=== PATIENT | male | born 1980 | race Caucasian/White ===

== ENCOUNTER 2017-01-24 12:39 | Emergency (ER) | payer SELFPAY ==
[2017-01-24 13:17] VITALS: BP 106/66
--- NOTE | 2017-01-24 13:58 | UC ---
Ear Complaint HPI - History of Current Complaint Chief Complaint: UCEar Stated Complaint: EAR COMPLAINT Time Seen by Provider: 01/24/17 13:30 Hx Obtained From: Patient Onset/Duration: Gradual Onset - has had decreased hearing and ringing in bilat ears over past few days, no pain, no drainage Severity Initially: Mild Severity Currently: Mild - has had chronic earwax build -up. has them flushed approx q month Aggravating Factors: Nothing Alleviating Factors: Nothing Associated Signs/Symptoms: Positive: Hearing Loss. Negative: URI Symptoms Related History: Other (Noted In Comments) - cerumen impactions - Allergies/Home Medications Allergies/Adverse Reactions: Allergies Allergy/AdvReac Type Severity Reaction Status Date / Time No Known Allergies Allergy Verified 03/12/16 17:28 Home Medications: Home Medications NK [No Home Medications Reported] 01/24/17 [History Confirmed 01/24/17] PMH/Surg Hx/FS Hx/Imm Hx Previously Healthy: Yes Cardiovascular History Of: Denies: Cardiac Disorders Respiratory History Of: Denies: COPD - Surgical History Surgical History: Yes Surgery Procedure, Year, and Place: WISDOM TEETH - Family History Known Family History: Positive: None Negative: Blood Disorder - Social History Occupation: Employed Full-time Lives: With Family Alcohol Use: None Substance Use Type: Marijuana Substance Use Comment - Amount & Last Used: daily Smoking Status (MU): Current Some Day Smoker Type: Cigarettes Amount Used/How Often: 1 CIG/DAY Cessation Counseling: Patient Advised to Stop Review of Systems Constitutional: Negative Skin: Negative ENT: Other - wax build up Respiratory: Negative Cardiovascular: Negative Neurovascular: Negative Neurological: Negative Psychological: Negative All Other Systems Reviewed And Are Negative: Yes Physical Exam Triage Information Reviewed: Yes Appearance: Well-Appearing, No Pain Distress, Well-Nourished Vital Signs: Initial Vital Signs Temp 98.7 F 01/24/17 13:14 Pulse 52 01/24/17 13:14 Resp 18 01/24/17 13:14 BP 106/66 01/24/17 13:14 Pulse Ox 98 01/24/17 13:14 Vital Signs Reviewed: Yes Eyes: Positive: Conjunctiva Clear ENT: Positive: Pharynx normal, Other: - bilateral cerumen impactions occluding TMs. Negative: Nasal congestion Respiratory Exam: Normal Respiratory: Positive: Lungs clear Cardiovascular Exam: Normal Cardiovascular: Positive: RRR Neurological Exam: Normal Psychological Exam: Normal Skin Exam: Normal Re-Evaluation - Re-Evaluation First Eval Re-Evaluation Time: 14:10 - bilateral ear canals are clear, TM's pearly with normal landmarks. pt states ears feel better, hearing improved Change: Improved Ear Complaint Course/Dx - Differential Dx/Diagnosis Differential Diagnosis/HQI/PQRI: Cerumen Impaction, Otitis Externa, Otitis Media Provider Diagnoses: bilateral cerumen impaction Discharge - Discharge Plan Condition: Good Disposition: HOME Patient Education Materials: Cerumen Impaction (ED) Additional Instructions: use the over the counter ear wax oil you have at home as directed return for problems
== END 2017-01-24 14:24 | disposition home or self-care (01) ==
LOC: UCEAST 12:39
DX: H61.23 Impacted cerumen, bilateral (principal); F17.290 Nicotine dependence, other tobacco product, uncomplicated
CPT/HCPCS: 99213; G0463

== ENCOUNTER 2017-07-03 13:32 | Emergency (ER) | payer SELFPAY ==
[2017-07-03 15:38] VITALS: BP 108/60
--- NOTE | 2017-07-03 16:00 | RAD ---
Indication: Left ankle pain. 3 views of left ankle demonstrates no fracture or dislocation. No other bone or joint abnormality is identified. Soft tissue swelling is noted. IMPRESSION: No fracture of the left ankle is noted.
--- NOTE | 2017-07-03 16:29 | ED ---
Lower Extremity - HPI Summary HPI Summary: 36M presents with left ankle pain two days ago after invert his ankle. He has been walking on his toes since. He states that area swelled and he noticed some brusing to the area. He denies any numbness or tingling. He has been taking advil for his pain. He has sprain his ankle multiple times and feels like it feels the same. - History of Current Complaint Chief Complaint: EDExtremityLower Stated Complaint: FALL/LT ANKLE-FOOT PAIN Time Seen by Provider: 07/03/17 16:04 Pain Intensity: 5 - Allergies/Home Medications Allergies/Adverse Reactions: Allergies Allergy/AdvReac Type Severity Reaction Status Date / Time No Known Allergies Allergy Verified 07/03/17 13:53 PMH/Surg Hx/FS Hx/Imm Hx Respiratory History: Denies: Hx Chronic Obstructive Pulmonary Disease (COPD) Psychiatric History: Reports: Hx Substance Abuse - HX OF HEROIN INJECTION IN - Surgical History Surgery Procedure, Year, and Place: WISDOM TEETH Infectious Disease History: Reports: Hx Hepatitis - c Denies: Hx Clostridium Difficile, Hx Human Immunodeficiency Virus (HIV), Hx of Known/Suspected MRSA, Hx Shingles, Hx Tuberculosis, Hx Known/Suspected VRE, Hx Known/Suspected VRSA, History Other Infectious Disease, Traveled Outside the [place] in Last 30 Days - Family History Known Family History: Positive: None Negative: Cardiac Disease, Blood Disorder - Social History Alcohol Use: None Substance Use Type: Reports: Marijuana Substance Use Comment - Amount & Last Used: daily Smoking Status (MU): Current Some Day Smoker Type: Cigarettes Amount Used/How Often: 1 CIG/DAY Review of Systems Negative: Fever Negative: Chest Pain Negative: Shortness Of Breath Positive: Myalgia - left ankle All Other Systems Reviewed And Are Negative: Yes Physical Exam Triage Information Reviewed: Yes Vital Signs On Initial Exam: Initial Vitals Temp Pulse Resp BP Pulse Ox 98.7 F 66 16 121/62 97 07/03/17 13:53 07/03/17 13:53 07/03/17 13:53 07/03/17 13:53 07/03/17 13:53 Vital Signs Reviewed: Yes Appearance: Positive: Well-Appearing Skin: Positive: Warm, Dry Head/Face: Positive: Normal Head/Face Inspection Eyes: Positive: Normal, Conjunctiva Clear Respiratory/Lung Sounds: Positive: Clear to Auscultation, Breath Sounds Present Cardiovascular: Positive: Normal, RRR Musculoskeletal: Positive: Limited @ - left ankle, Edema Left - ankle, Other - good pulses, capillary refill<2 secs, ecchymosis to ankle and foot, tender across lateral aspect of ankle Diagnostics - Vital Signs Vital Signs Temp Pulse Resp BP Pulse Ox 07/03/17 15:38 97.9 F 89 108/60 98 07/03/17 13:53 98.7 F 66 16 121/62 97 - Laboratory Lab Statement: Any lab studies that have been ordered have been reviewed, and results considered in the medical decision making process. Lower Extremity Course/Dx - Course Course Of Treatment: 36M presents with left ankle pain two days ago after invert his ankle. He has been walking on his toes since. He states that area swelled and he noticed some brusing to the area. He denies any numbness or tingling. He has been taking advil for his pain. He has sprain his ankle multiple times and feels like it feels the same. xray normal. will treat with RICE. patient understands and agrees with plan. - Diagnoses Differential Diagnosis/HQI/PQRI: Positive: Fracture (Closed), Sprain, Strain Provider Diagnoses: Left ankle injury Discharge - Discharge Plan Condition: Good Disposition: HOME Patient Education Materials: Ankle Sprain (ED) Referrals: [facility] [Outside] Additional Instructions: Stay off ankle as much as possible Ice, elevate, keep in RYAN Ibuprofen every 6-8 hours for pain Establish care with primary care physician Return to ED if develop any new or worsening symptoms
== END 2017-07-03 16:50 | disposition home or self-care (01) ==
LOC: ED 13:32
DX: S99.912A Unspecified injury of left ankle, initial encounter (principal); X50.1XXA Overexertion from prolonged static or awkward postures, initial encounter; Y93.9 Activity, unspecified; Y92.9 Unspecified place or not applicable; F12.90 Cannabis use, unspecified, uncomplicated; Z72.0 Tobacco use
CPT/HCPCS: 99281

== ENCOUNTER 2018-06-19 02:17 | Emergency (ER) | payer SELFPAY ==
--- NOTE | 2018-06-19 02:30 | ED ---
Substance Abuse/Use - HPI Summary HPI Summary: This is génesis Bertrand documenting for attending Vicente Mcknight MD. This patient is a 37 year old M brought in by [employer] to [facility] with a chief complaint of EtOH intoxication since earlier this evening. Police report the patient became agitated and belligerent at the [employer] festival and the police were called. Per triage note, patient admits to using Ketamine today. The patient rates the pain 0/10 in severity. Symptoms aggravated by nothing. Symptoms alleviated by nothing. - History Of Current Complaint Chief Complaint: EDMentalHealth Stated Complaint: ETOH Hx Obtained From: Patient, Other: - police Onset/Duration of Drug/ETOH Abuse: Hours Ingestion History: Type/Name Of Drug - marijuana, EtOH Overdose Characteristics: Oral Timing Of Abuse: Binge Use Severity Initially: Mild Severity Currently: Mild Character: Angry Aggravating Factor(s): Nothing Alleviating Factor(s): Nothing Associated Signs And Symptoms: Agitated Related Hx: Possible Multi Drug Ingestion - Allergies/Home Medications Allergies/Adverse Reactions: Allergies Allergy/AdvReac Type Severity Reaction Status Date / Time No Known Allergies Allergy Verified 07/03/17 13:53 PMH/Surg Hx/FS Hx/Imm Hx Respiratory History: Denies: Hx Chronic Obstructive Pulmonary Disease (COPD) Opthamlomology History: Denies: Hx Legally Blind EENT History: Denies: Hx Deafness Psychiatric History: Reports: Hx Substance Abuse - HX OF HEROIN INJECTION IN - Surgical History Surgery Procedure, Year, and Place: WISDOM TEETH Infectious Disease History: No Infectious Disease History: Reports: Hx Hepatitis - c Denies: Hx Clostridium Difficile, Hx Human Immunodeficiency Virus (HIV), Hx of Known/Suspected MRSA, Hx Shingles, Hx Tuberculosis, Hx Known/Suspected VRE, Hx Known/Suspected VRSA, History Other Infectious Disease, Traveled Outside the [place] in Last 30 Days - Family History Known Family History: Positive: None Negative: Cardiac Disease, Blood Disorder - Social History Alcohol Use: None Substance Use Type: Reports: Marijuana Substance Use Comment - Amount & Last Used: daily Smoking Status (MU): Current Some Day Smoker Type: Cigarettes Amount Used/How Often: 1 CIG/DAY Review of Systems Negative: Fever Negative: Epistaxis Negative: Cough Negative: Vomiting Neurological: Other - EtOH intoxication All Other Systems Reviewed And Are Negative: Yes Physical Exam - Summary Physical Exam Summary: Appearance: Well-appearing, Well-nourished, lying in bed comfortably, clearly intoxicated, smells of alcohol and marijuana Skin: Warm, dry, no obvious rash Eyes: sclera anicteric, no conjunctival pallor ENT: mucous membranes moist, pharynx appears normal Neck: Supple, nontender Respiratory: Clear to auscultation, no signs of respiratory distress Cardiovascular: Normal S1, S2. No murmurs. Normal distal pulses in tibial and radial bilaterally. Abdomen: Soft, nontender, normal active bowel sounds present Musculoskeletal: Normal, Strength/ROM Intact Neurological: A&Ox3, awake and alert, mentation is normal, speech is fluent and appropriate Psychiatric: affect is normal, does not appear anxious or depressed, cooperative with medical staff Triage Information Reviewed: Yes Vital Signs On Initial Exam: Initial Vitals Temp Pulse Resp BP Pulse Ox 98.9 F 97 18 135/91 99 06/19/18 02:21 06/19/18 02:21 06/19/18 02:21 06/19/18 02:21 06/19/18 02:21 Vital Signs Reviewed: Yes Diagnostics - Vital Signs Vital Signs Temp Pulse Resp BP Pulse Ox 06/19/18 02:21 98.9 F 97 18 135/91 99 - Laboratory Lab Statement: Any lab studies that have been ordered have been reviewed, and results considered in the medical decision making process. Course/Dx - Diagnoses Provider Diagnoses: Acute delirium Discharge - Sign-Out/Discharge Documenting (check all that apply): Sign-Out Patient Signing out patient TO: Kingsley Hargrove Receiving patient FROM: Vicente Mcknight - Discharge Plan Patient Education Materials: Acute Delirium (ED) Referrals: [facility] [Outside] Additional Instructions: Rest at home until you feel normal.
[2018-06-19] MEDS ORDERED: LORazepam TAB(*) 1 MG PO ONE (04:26)
[2018-06-19] MEDS ORDERED: LORazepam TAB(*) 1 MG ONE (04:27)
--- NOTE | 2018-06-19 07:55 | ED ---
Progress - Progress Note Progress Note: This is scratiya Kingston documenting for attending Dr. Kingsley Hargrove MD. This patient is a sign-out from Dr. Vicente Mcknight MD, at change of shift, awaiting discharge home. He is diagnosed with acute delirium by Dr. Mcknight. Pt was given discharge instructions and return precautions by previous physician Dr. Mcknight, who had already medically cleared him to leave with someone responsible to pick him up at bedside. Nurse reports his brother at bedside to pick him up. Course/Dx - Diagnoses Provider Diagnoses: Acute delirium Discharge - Sign-Out/Discharge Documenting (check all that apply): Patient Departure - Pt discharged home., Receiving Sign-Out Receiving patient FROM: Vicente Mcknight - Pt received as a sign-out at shift change, awaiting discharge home. - Discharge Plan Condition: Stable Disposition: HOME Patient Education Materials: Acute Delirium (ED) Referrals: [facility] [Outside] Additional Instructions: Rest at home until you feel normal. - Billing Disposition and Condition Condition: STABLE Disposition: Home
[2018-06-19 08:30] VITALS: BP 101/67
== END 2018-06-19 08:30 | disposition home or self-care (01) ==
LOC: ED 02:17
DX: F10.921 Alcohol use, unspecified with intoxication delirium (principal); F19.90 Other psychoactive substance use, unspecified, uncomplicated; Z72.0 Tobacco use
CPT/HCPCS: 99284; A9270-GY

== ENCOUNTER 2018-08-19 15:33 | Emergency (ER) | payer SELFPAY ==
[2018-08-19 16:25] LABS: Urine Appearance Cloudy; Urine Blood Negative (Negative); Urine Color Yellow; Urine Ketones Negative (Negative); Urine Protein Negative (Negative); Urine Specific Gravity 1.014 (1.010-1.030); Urine Urobilinogen Negative (Negative)
[2018-08-19 16:39] LABS: ABS Basophils 0.1 10^3/ul (0-0.2); ABS Eosinophils 0.2 10^3/ul (0-0.6); ABS Lymphocytes 1.6 10^3/ul (1.0-4.8); ABS Monocytes 0.7 10^3/ul (0-0.8); ABS Neutrophils 8.1 10^3/ul (1.5-7.7); ABS Nucleated RBC 0 10^3/ul; Eosinophil % 1.9 % (0-6); Hematocrit 43 % (42-52); Hemoglobin 14.9 g/dl (14.0-18.0); Lymphocyte % 15.3 % (25-47); Mean Corpuscular HGB Conc 34 g/dl (31-36); Mean Corpuscular Hemoglobin 32 pg (27-31); Mean Corpuscular Volume 92 fL (80-94); Nucleated Red Blood Cells % 0; Platelet Count 251 10^3/ul (150-450); Red Blood Count 4.69 10^6/ul (4.00-5.40); Red Cell Distribution Width 14 % (10.5-15); White Blood Count 10.7 10^3/ul (3.5-10.8)
[2018-08-19 16:55] LABS: EGFR Non-African American 96.4 (>60)
[2018-08-19] MEDS ORDERED: Nicotine Inhaler* 10 MG AMP INH PRN (17:36)
[2018-08-19] MEDS ORDERED: Mouth Piece, Nicotine* 1 EACH CARTRIDGE INH PRN (17:36)
[2018-08-19] MEDS ORDERED: LORazepam TAB(*) 1 MG PO ONE (19:20)
--- NOTE | 2018-08-19 19:20 | ED ---
Psychiatric Complaint - HPI Summary HPI Summary: This patient is a 37 year old M presenting to [facility] with a chief complaint of SI since 08/18/18. He endorses several stressors: my parents will be homeless in a week/are addicted to heroin, his friend hanged himself last week , he overdosed on acid 2 months ago, and his left him. Pt endorses marijuana use. Patient denies SI, and claims that he is in the ED because someone who is trying to fuck my said that the patient claimed Id rather than never see my family again. He endorses a previous suicide attempt when 12 (25 years ago). Per police report, pt was brought in for active SI. - History Of Current Complaint Chief Complaint: EDMentalHealth Hx Obtained From: Patient Onset/Duration: Sudden Onset, Lasting Hours, Resolved - allegedly Severity Initially: Moderate Severity Currently: Mild Character: Frustrated Aggravating Factor(s): Recent Stress - see HPI summary Alleviating Factor(s): Nothing Associated Signs And Symptoms: Positive: Negative Related History: Positive For: Prior Psychiatric Issues Has Suicidal: Reports: Thoughts - resolved, Has Prior Attempt(s) - 25 years ago Has Homicidal: Denies: Thoughts - Allergies/Home Medications Allergies/Adverse Reactions: Allergies Allergy/AdvReac Type Severity Reaction Status Date / Time No Known Allergies Allergy Verified 07/03/17 13:53 PMH/Surg Hx/FS Hx/Imm Hx Endocrine/Hematology History: Denies: Hx Sickle Cell Disease Cardiovascular History: Denies: Hx Pacemaker/ICD Respiratory History: Denies: Hx Chronic Obstructive Pulmonary Disease (COPD) GI History: Denies: Hx Ileostomy History: Denies: Hx Dialysis Sensory History: Denies: Hx Legally Blind, Hx Deafness Opthamlomology History: Denies: Hx Legally Blind EENT History: Denies: Hx Deafness Neurological History: Denies: Hx Dementia Psychiatric History: Reports: Hx Suicide Attempt, Hx Substance Abuse - HX OF HEROIN INJECTION IN - Surgical History Surgery Procedure, Year, and Place: WISDOM TEETH Infectious Disease History: Yes Infectious Disease History: Reports: Hx Hepatitis - c Denies: Hx Clostridium Difficile, Hx Human Immunodeficiency Virus (HIV), Hx of Known/Suspected MRSA, Hx Shingles, Hx Tuberculosis, Hx Known/Suspected VRE, Hx Known/Suspected VRSA, History Other Infectious Disease, Traveled Outside the [place] in Last 30 Days - Family History Known Family History: Negative: Cardiac Disease, Blood Disorder - Social History Lives: Alone Alcohol Use: None Hx Substance Use: Yes Substance Use Type: Reports: Marijuana, Synthetic Drugs Substance Use Comment - Amount & Last Used: daily Hx Tobacco Use: Yes Smoking Status (MU): Current Some Day Smoker Type: Cigarettes Amount Used/How Often: 1 CIG/DAY Review of Systems Negative: Fever Positive: no symptoms reported Positive: Other - resolved SI. All Other Systems Reviewed And Are Negative: Yes Physical Exam - Summary Physical Exam Summary: VITAL SIGNS: Reviewed. GENERAL: Patient is a well-developed and nourished (MALE OR FEMALE) who is lying comfortable in the stretcher. Patient is not in any acute respiratory distress. HEAD AND FACE: No signs of trauma. No ecchymosis, hematomas or skull depressions. No sinus tenderness. EYES: PERRLA, EOMI x 2, No injected conjunctiva, no nystagmus. EARS: Hearing grossly intact. Ear canals and tympanic membranes are within normal limits. MOUTH: Oropharynx within normal limits. NECK: Supple, trachea is midline, no adenopathy, no JVD, no carotid bruit, no c- spine tenderness, neck with full ROM. CHEST: Symmetric, no tenderness at palpation LUNGS: Clear to auscultation bilaterally. No wheezing or crackles. CVS: Regular rate and rhythm, S1 and S2 present, no murmurs or gallops appreciated. ABDOMEN: Soft, non-tender. No signs of distention. No rebound no guarding, and no masses palpated. Bowel sounds are normal. EXTREMITIES: FROM in all major joints, no edema, no cyanosis or clubbing. NEURO: Alert and oriented x 3. No acute neurological deficits. Speech is normal and follows commands. SKIN: Dry and warm PSYCH: Reny Triage Information Reviewed: Yes Vital Signs On Initial Exam: Initial Vitals Temp Pulse Resp BP Pulse Ox 98.8 F 91 16 149/110 98 08/19/18 15:48 08/19/18 15:48 08/19/18 15:48 08/19/18 15:48 08/19/18 15:48 Vital Signs Reviewed: Yes Diagnostics - Vital Signs Vital Signs Temp Pulse Resp BP Pulse Ox 08/19/18 15:48 98.8 F 91 16 149/110 98 - Laboratory Lab Results: Lab Results 08/19/18 08/19/18 08/19/18 Range/Units 16:13 16:13 16:19 WBC 10.7 (3.5-10.8) 10^3/ul RBC 4.69 (4.00-5.40) 10^6/ul Hgb 14.9 (14.0-18.0) g/dl Hct 43 (42-52) % MCV 92 (80-94) fL MCH 32 H (27-31) pg MCHC 34 (31-36) g/dl RDW 14 (10.5-15) % Plt Count 251 (150-450) 10^3/ul MPV 9.0 (7.4-10.4) um3 Neut % (Auto) 75.5 (38-83) % Lymph % (Auto) 15.3 L (25-47) % [place] % (Auto) 6.7 (0-7) % Eos % (Auto) 1.9 (0-6) % Baso % (Auto) 0.6 (0-2) % Absolute Neuts (auto) 8.1 H (1.5-7.7) 10^3/ul Absolute Lymphs (auto) 1.6 (1.0-4.8) 10^3/ul Absolute Monos (auto) 0.7 (0-0.8) 10^3/ul Absolute Eos (auto) 0.2 (0-0.6) 10^3/ul Absolute Basos (auto) 0.1 (0-0.2) 10^3/ul Absolute Nucleated RBC 0 10^3/ul Nucleated RBC % 0 Sodium (135-145) mmol/L Potassium (3.5-5.0) mmol/L Chloride (101-111) mmol/L Carbon Dioxide (22-32) mmol/L Anion Gap (2-11) mmol/L BUN (6-24) mg/dL Creatinine (0.67-1.17) mg/dL Est GFR ( Amer) (>60) Est GFR (Non-Af Amer) (>60) BUN/Creatinine Ratio (8-20) Glucose (70-100) mg/dL Calcium (8.6-10.3) mg/dL Total Bilirubin (0.2-1.0) mg/dL AST (13-39) U/L ALT (7-52) U/L Alkaline Phosphatase (34-104) U/L Total Protein (6.4-8.9) g/dL Albumin (3.2-5.2) g/dL Globulin (2-4) g/dL Albumin/Globulin Ratio (1-3) TSH (0.34-5.60) mcIU/mL Urine Color Yellow Urine Appearance Cloudy Urine pH 7.0 (5-9) Ur Specific [place] 1.014 (1.010-1.030) Urine Protein Negative (Negative) Urine Ketones Negative (Negative) Urine Blood Negative (Negative) Urine Nitrate Negative (Negative) Urine Bilirubin Negative (Negative) Urine Urobilinogen Negative (Negative) Ur Leukocyte Esterase Negative (Negative) Urine Glucose Negative (Negative) Salicylates (<30) mg/dL Urine Opiates Screen None detected (None Detect) Acetaminophen mcg/mL Ur Barbiturates Screen None detected (None Detect) Ur Phencyclidine Scrn None detected (None Detect) Ur Amphetamines Screen None detected (None Detect) U Benzodiazepines Scrn None detected (None Detect) Urine Cocaine Screen None detected (None Detect) U Cannabinoids Screen Presumptive positive A (None Detect) Serum Alcohol (<10) mg/dL 08/19/18 Range/Units 16:19 WBC (3.5-10.8) 10^3/ul RBC (4.00-5.40) 10^6/ul Hgb (14.0-18.0) g/dl Hct (42-52) % MCV (80-94) fL MCH (27-31) pg MCHC (31-36) g/dl RDW (10.5-15) % Plt Count (150-450) 10^3/ul MPV (7.4-10.4) um3 Neut % (Auto) (38-83) % Lymph % (Auto) (25-47) % [place] % (Auto) (0-7) % Eos % (Auto) (0-6) % Baso % (Auto) (0-2) % Absolute Neuts (auto) (1.5-7.7) 10^3/ul Absolute Lymphs (auto) (1.0-4.8) 10^3/ul Absolute Monos (auto) (0-0.8) 10^3/ul Absolute Eos (auto) (0-0.6) 10^3/ul Absolute Basos (auto) (0-0.2) 10^3/ul Absolute Nucleated RBC 10^3/ul Nucleated RBC % Sodium 138 (135-145) mmol/L Potassium 4.0 (3.5-5.0) mmol/L Chloride 107 (101-111) mmol/L Carbon Dioxide 25 (22-32) mmol/L Anion Gap 6 (2-11) mmol/L BUN 16 (6-24) mg/dL Creatinine 0.88 (0.67-1.17) mg/dL Est GFR ( Amer) 116.7 (>60) Est GFR (Non-Af Amer) 96.4 (>60) BUN/Creatinine Ratio 18.2 (8-20) Glucose 109 H (70-100) mg/dL Calcium 9.4 (8.6-10.3) mg/dL Total Bilirubin 0.70 (0.2-1.0) mg/dL AST 19 (13-39) U/L ALT 20 (7-52) U/L Alkaline Phosphatase 60 (34-104) U/L Total Protein 7.3 (6.4-8.9) g/dL Albumin 4.7 (3.2-5.2) g/dL Globulin 2.6 (2-4) g/dL Albumin/Globulin Ratio 1.8 (1-3) TSH 1.71 (0.34-5.60) mcIU/mL Urine Color Urine Appearance Urine pH (5-9) Ur Specific [place] (1.010-1.030) Urine Protein (Negative) Urine Ketones (Negative) Urine Blood (Negative) Urine Nitrate (Negative) Urine Bilirubin (Negative) Urine Urobilinogen (Negative) Ur Leukocyte Esterase (Negative) Urine Glucose (Negative) Salicylates < 2.50 (<30) mg/dL Urine Opiates Screen (None Detect) Acetaminophen < 15 mcg/mL Ur Barbiturates Screen (None Detect) Ur Phencyclidine Scrn (None Detect) Ur Amphetamines Screen (None Detect) U Benzodiazepines Scrn (None Detect) Urine Cocaine Screen (None Detect) U Cannabinoids Screen (None Detect) Serum Alcohol < 10 (<10) mg/dL Result Diagrams: 08/19/18 16:19 08/19/18 16:19 Lab Statement: Any lab studies that have been ordered have been reviewed, and results considered in the medical decision making process. Course/Dx - Course Course Of Treatment: This patient is a 37 year old M presenting to [facility] with a chief complaint of alleged SI since 08/18/18. He endorses several stressors: my parents will be homeless in a week/are addicted to heroin, his friend hanged himself last week, he overdosed on acid 2 months ago, and his left him. Pt endorses marijuana use. Patient denies SI, and claims that he is in the ED because someone who is trying to fuck my said that the patient claimed Id rather than never see my family again. He endorses a previous suicide attempt when 12 (25 years ago). In the ED course, the patient was given a nicotine inhaler. The patient's labs are normal except for low MCH , low lymph %, high abs neut, high glucose, and presumptive (+) cannabinoids. - Differential Dx/Clinical Impression Provider Diagnosis: Suicidal ideation Discharge - Sign-Out/Discharge Documenting (check all that apply): Sign-Out Patient Signing out patient TO: Vicente Mcknight [facility] - Discharge Plan Condition: Good Disposition: HOME Referrals: No Primary Care Phys,NOPCP [Primary Care Provider] - - Billing Disposition and Condition Condition: GOOD Disposition: Home - Attestation Statements Document Initiated by Simona: Yes Documenting Scribe: Caden Benitez Provider For Whom iSmona is Documenting (Include Credential): Dr. Elmer Frausto MD Scribe Attestation: Caden Abdul scribed for Dr. Elmer Frausto MD on 08/20/18 at 0513. Scribe Documentation Reviewed: Yes Provider Attestation: The documentation as recorded by the Caden capps accurately reflects the service I personally performed and the decisions made by me, Dr. Elmer Frausto MD
[2018-08-19] MEDS ORDERED: Haloperidol INJ IV/IM* 5 MG/ML AMP ONE (19:55)
[2018-08-19] MEDS ORDERED: diPHENhydraMINE PO* 50 MG ONE (19:55)
[2018-08-19] MEDS ORDERED: LORazepam INJ* 2 MG/ML 1 ML VIAL ONE (19:55)
--- NOTE | 2018-08-20 03:24 | ED ---
Progress - Progress Note Progress Note: This pt was signed out by Dr. Frausto, pending disposition, awaiting MHE. Pt had a mental health evaluation and his case was reviewed by Dr. Cheung, psychiatrist. Pt will be discharged home. Course/Dx - Diagnoses Provider Diagnoses: Suicidal ideation Discharge - Sign-Out/Discharge Documenting (check all that apply): Patient Departure - Discharge, Receiving Sign-Out Signing out patient TO: Vicente Mcknight Receiving patient FROM: Elmer Frausto - Discharge Plan Condition: Good Disposition: HOME Patient Education Materials: Depression (ED), Anxiety (ED), Suicide Prevention (ED) [facility] [Other] (Please follow up with your regular therapist, Maylin Velazquez, at your earliest convenience.) No Primary Care Phys,NOPCP [Primary Care Provider] - - Attestation Statements Document Initiated by Scribe: Yes Documenting Scribe: Sherry Santos Provider For Whom Scribe is Documenting (Include Credential): Vicente Mcknight MD Scribe Attestation: I, Sherry Santos, scribed for Vicente Mcknight MD on 08/20/18 at 0600.
[2018-08-20 06:21] VITALS: BP 96/63
== END 2018-08-20 06:00 | disposition home or self-care (01) ==
LOC: ED 15:33
DX: R45.851 Suicidal ideations (principal); Z72.0 Tobacco use
CPT/HCPCS: 36415; 80053; 80307; 80320; 80329; 81003; 84443; 85025; 86618; 99285; A9270-GY; G0480; J1630; J2060

== ENCOUNTER 2019-06-12 16:15 | Emergency (ER) | payer SELFPAY ==
[2019-06-12] MEDS ORDERED: Cephalexin CAP* 500 MG PO ONE (22:07)
[2019-06-12] MEDS ORDERED: Sulfamethox/Trimethoprim DS 800/160* TAB PO ONE (22:07)
[2019-06-12] MEDS ORDERED: Bacitracin OINTMENT* 0.5% 0.5 oz TUBE TOPICAL ONE (22:10)
--- NOTE | 2019-06-12 22:10 | ED ---
Lower Extremity - HPI Summary HPI Summary: Patient complains of laceration to base of great right toe day and a half ago. Patient states he was on cocaine, and stepped on florescent light bulb. Denies any other pain injury or symptoms. - History of Current Complaint Chief Complaint: EDLacSutureRecheck Stated Complaint: GLASS IN FOOT PER PT Time Seen by Provider: 06/12/19 17:40 Hx Obtained From: Patient Mechanism Of Injury: Other Onset of Pain: Immediate Onset/Duration: Days Severity Initially: Moderate Severity Currently: Moderate Pain Intensity: 4 Pain Scale Used: 0-10 Numeric Timing: Constant Location: Is Discrete @ Character Of Pain: Aching, Throbbing Associated Signs And Symptoms: Positive: Negative Aggravating Factor(s): Standing, Weight Bearing Alleviating Factor(s): Rest Able to Bear Weight: Yes - Allergies/Home Medications Allergies/Adverse Reactions: Allergies Allergy/AdvReac Type Severity Reaction Status Date / Time No Known Allergies Allergy Verified 06/12/19 16:33 PMH/Surg Hx/FS Hx/Imm Hx Endocrine/Hematology History: Denies: Hx Sickle Cell Disease Cardiovascular History: Denies: Hx Pacemaker/ICD Respiratory History: Denies: Hx Chronic Obstructive Pulmonary Disease (COPD) GI History: Denies: Hx Ileostomy History: Denies: Hx Dialysis Sensory History: Denies: Hx Legally Blind, Hx Deafness Opthamlomology History: Denies: Hx Legally Blind Neurological History: Denies: Hx Dementia Psychiatric History: Reports: Hx Suicide Attempt, Hx Substance Abuse - 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 - Surgical History Surgery Procedure, Year, and Place: WISDOM TEETH Infectious Disease History: No Infectious Disease History: Reports: Hx Hepatitis - c Denies: Hx Clostridium Difficile, Hx Human Immunodeficiency Virus (HIV), Hx of Known/Suspected MRSA, Hx Shingles, Hx Tuberculosis, Hx Known/Suspected VRE, Hx Known/Suspected VRSA, History Other Infectious Disease, Traveled Outside the [place] in Last 30 Days - Family History Known Family History: Negative: Cardiac Disease, Blood Disorder - Social History Alcohol Use: None Hx Substance Use: Yes Substance Use Type: Reports: Cocaine, Marijuana, Synthetic Drugs Substance Use Comment - Amount & Last Used: daily Hx Tobacco Use: Yes Smoking Status (MU): Current Some Day Smoker Type: Cigarettes Amount Used/How Often: 1 CIG/DAY Review of Systems Constitutional: Negative Eyes: Negative ENT: Negative Cardiovascular: Negative Respiratory: Negative Gastrointestinal: Negative Genitourinary: Negative Musculoskeletal: Negative Skin: Other Neurological: Negative Psychological: Normal All Other Systems Reviewed And Are Negative: Yes Physical Exam - Summary Physical Exam Summary: Already healing laceration along base of right great toe. Right foot is extremely dirty. Right foot and wound cleaned. Superficial laceration also noted to right heel. No foreign bodies noted in laceration of right great toe or right heel. Wounds will not be sutured, will be left to heal by secondary intention. PMS intact distally. Triage Information Reviewed: Yes Vital Signs On Initial Exam: Initial Vitals Temp Pulse Resp BP Pulse Ox 99.0 F 86 20 117/64 97 06/12/19 16:30 06/12/19 16:30 06/12/19 16:30 06/12/19 16:30 06/12/19 16:30 Vital Signs Reviewed: Yes Appearance: Positive: Well-Appearing Skin: Positive: Warm Head/Face: Positive: Normal Head/Face Inspection Eyes: Positive: Normal Neck: Positive: Supple Respiratory/Lung Sounds: Positive: Clear to Auscultation Cardiovascular: Positive: Normal Abdomen Description: Positive: Nontender Musculoskeletal: Positive: Normal Neurological: Positive: Normal Psychiatric: Positive: Normal AVPU Assessment: Alert - Genesis Coma Scale Best Eye Response: 4 - Spontaneous Best Motor Response: 6 - Obeys Commands Best Verbal Response: 5 - Oriented Coma Scale Total: 15 Diagnostics - Vital Signs Vital Signs Temp Pulse Resp BP Pulse Ox 06/12/19 16:30 99.0 F 86 20 117/64 97 - Laboratory Lab Statement: Any lab studies that have been ordered have been reviewed, and results considered in the medical decision making process. Lower Extremity Course/Dx - Course Course Of Treatment: Patient complains of laceration to base of great right toe day and a half ago. Patient states he was on cocaine, and stepped on florescent light bulb. Denies any other pain injury or symptoms. Vital signs within normal limits. No indication for suturing. Patient started on antibiotics. Wound wrapped. - Diagnoses Provider Diagnoses: Laceration Discharge - Sign-Out/Discharge Documenting (check all that apply): Patient Departure Patient Received Moderate/Deep Sedation with Procedure: No - Discharge Plan Condition: Stable Disposition: HOME Prescriptions: Cephalexin CAP* [Keflex CAP*] 500 mg PO TID 7 Days #21 cap Sulfamethox/Trimethoprim DS* [Bactrim DS 800/160 TAB*] 1 tab PO BID 10 Days #20 tab Patient Education Materials: Laceration (ED), Laceration Without Closure (ED) Referrals: No Primary Care Phys,NOPCP [Primary Care Provider] - Corbin Locke MD [Medical Doctor] - Additional Instructions: Take antibiotics as directed. Keep wound clean and dry and protected. Follow- up with orthopedics Dr. Taveras for further evaluation. Return to the ED for any new or worsening symptoms. - Billing Disposition and Condition Condition: STABLE Disposition: Home
[2019-06-12 22:30] VITALS: BP 0/0
== END 2019-06-12 22:29 | disposition home or self-care (01) ==
LOC: ED 16:15
DX: S91.111A Laceration without foreign body of right great toe without damage to nail, initial encounter (principal); W25.XXXA Contact with sharp glass, initial encounter; Y92.9 Unspecified place or not applicable; Z72.0 Tobacco use
CPT/HCPCS: 99282; A9270-GY

== ENCOUNTER 2019-09-12 15:33 | Emergency (ER) | payer OTHER ==
--- NOTE | 2019-09-12 18:17 | ED ---
Lower Extremity - HPI Summary HPI Summary: Complains of right knee pain starting yesterday. Patient states he was dancing and landed on a rock and twisted it. States pain on right side of knee. Patient is ambulatory, denies any other pain, injury or symptoms. - History of Current Complaint Chief Complaint: EDExtremityLower Stated Complaint: RT LEG INJURY PER PT Time Seen by Provider: 09/12/19 18:08 Hx Obtained From: Patient Mechanism Of Injury: Other Onset of Pain: Immediate Onset/Duration: Hours Severity Initially: Severe Severity Currently: Severe Pain Intensity: 9 Pain Scale Used: 0-10 Numeric Timing: Constant Location: Is Discrete @ Character Of Pain: Aching, Throbbing Associated Signs And Symptoms: Positive: Negative Aggravating Factor(s): Standing, Ambulation, Movement Alleviating Factor(s): Rest Able to Bear Weight: Yes - Allergies/Home Medications Allergies/Adverse Reactions: Allergies Allergy/AdvReac Type Severity Reaction Status Date / Time No Known Allergies Allergy Verified 09/12/19 17:40 PMH/Surg Hx/FS Hx/Imm Hx Endocrine/Hematology History: Denies: Hx Anticoagulant Therapy, Hx Sickle Cell Disease Cardiovascular History: Denies: Hx Pacemaker/ICD Respiratory History: Denies: Hx Chronic Obstructive Pulmonary Disease (COPD) GI History: Denies: Hx Ileostomy History: Denies: Hx Dialysis Sensory History: Denies: Hx Legally Blind, Hx Deafness Opthamlomology History: Denies: Hx Legally Blind Neurological History: Denies: Hx Dementia Psychiatric History: Reports: Hx Suicide Attempt, Hx Substance Abuse - 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 - Surgical History Surgery Procedure, Year, and Place: WISDOM TEETH Infectious Disease History: No Infectious Disease History: Reports: Hx Hepatitis - c Denies: Hx Clostridium Difficile, Hx Human Immunodeficiency Virus (HIV), Hx of Known/Suspected MRSA, Hx Shingles, Hx Tuberculosis, Hx Known/Suspected VRE, Hx Known/Suspected VRSA, History Other Infectious Disease, Traveled Outside the [place] in Last 30 Days - Family History Known Family History: Negative: Cardiac Disease, Blood Disorder - Social History Alcohol Use: None Hx Substance Use: Yes Substance Use Type: Reports: Cocaine, Marijuana, Synthetic Drugs Substance Use Comment - Amount & Last Used: daily Hx Tobacco Use: Yes Smoking Status (MU): Current Some Day Smoker Type: Cigarettes Amount Used/How Often: 1 CIG/DAY Review of Systems Constitutional: Negative Eyes: Negative ENT: Negative Cardiovascular: Negative Respiratory: Negative Gastrointestinal: Negative Genitourinary: Negative Musculoskeletal: Other Skin: Negative Neurological: Negative Psychological: Normal All Other Systems Reviewed And Are Negative: Yes Physical Exam - Summary Physical Exam Summary: No erythema, deformity, ecchymosis, swelling noted to right knee. Full range of motion with some pain. PMS intact distally. Calf soft nontender. Triage Information Reviewed: Yes Vital Signs On Initial Exam: Initial Vitals Temp Pulse Resp BP Pulse Ox 99.8 F 85 16 106/75 99 09/12/19 15:35 09/12/19 15:35 09/12/19 15:35 09/12/19 15:35 09/12/19 15:35 Vital Signs Reviewed: Yes Appearance: Positive: Well-Appearing Skin: Positive: Warm Head/Face: Positive: Normal Head/Face Inspection Eyes: Positive: Normal Neck: Positive: Supple Respiratory/Lung Sounds: Positive: Clear to Auscultation Cardiovascular: Positive: Normal Abdomen Description: Positive: Nontender Musculoskeletal: Positive: Normal Neurological: Positive: Normal Psychiatric: Positive: Normal AVPU Assessment: Alert - Genesis Coma Scale Best Eye Response: 4 - Spontaneous Best Motor Response: 6 - Obeys Commands Best Verbal Response: 5 - Oriented Coma Scale Total: 15 Procedures - Sedation Patient Received Moderate/Deep Sedation with Procedure: No Diagnostics - Vital Signs Vital Signs Temp Pulse Resp BP Pulse Ox 09/12/19 15:35 99.8 F 85 16 106/75 99 - Laboratory Lab Statement: Any lab studies that have been ordered have been reviewed, and results considered in the medical decision making process. Lower Extremity Course/Dx - Course Course Of Treatment: Complains of right knee pain starting yesterday. Patient states he was dancing and landed on a rock and twisted it. States pain on right side of knee. Patient is ambulatory, denies any other pain, injury or symptoms. Vital signs within normal limits. X-ray negative for fracture. Advised patient follow up with ortho if symptoms do not improve in a couple days. - Diagnoses Provider Diagnoses: Knee pain, Rash Discharge ED - Sign-Out/Discharge Documenting (check all that apply): Patient Departure - Discharge Plan Condition: Stable Disposition: HOME Patient Education Materials: Acute Rash (ED), Knee Pain (ED) Referrals: Gage Becerril MD [Primary Care Provider] - Blanca Michele MD [Medical Doctor] - Tung Horner MD [Medical Doctor] - Additional Instructions: Alternate ibuprofen 600 mg with Tylenol 650 mg every 3 hours as needed for right knee pain. Follow-up with orthopedics Dr. Horner for further evaluation of right knee pain. Follow-up with dermatology Dr. Michele for further evaluation of rash. - Billing Disposition and Condition Condition: STABLE Disposition: Home
[2019-09-12] MEDS ORDERED: Ketorolac INJ* 30 MG/ML 1 ML VIAL IM ONE (18:50)
[2019-09-12 19:11] VITALS: BP 110/74
== END 2019-09-12 19:10 | disposition home or self-care (01) ==
LOC: ED 15:33
DX: M25.561 Pain in right knee (principal); R21 Rash and other nonspecific skin eruption; F17.210 Nicotine dependence, cigarettes, uncomplicated
CPT/HCPCS: 96372; 99282; J1885